=== PATIENT | male | born 1995 ===

== ENCOUNTER 2018-12-11 10:53 | Emergency (ER) | payer MEDICAID ==
[2018-12-11 11:03] VITALS: RESP 18
[2018-12-11 11:04] VITALS: BMI 58.3
--- NOTE | 2018-12-11 11:28 | ED PDOC ---
HPI: General Adult Time Seen by Provider: 12/11/18 11:06 Chief Complaint (Nursing): Weakness/Neurological Deficit Chief Complaint (Provider): Weakness/Neurological Deficit History Per: Patient History/Exam Limitations: no limitations Onset/Duration Of Symptoms: Days (2) Additional Complaint(s): 23 y/o male presents to the ED complaining of right facial numbness since 2 days ago. Patient denies vision changes, nausea, vomiting, numbness, or any weakness to the extremities. PMD: none provided NIHSS Stroke Scale - Date/Time Evaluation Performed Time Performed: 11:10 When Was NIHSS Performed: Baseline - How Severe is the Stroke Level of Consciousness: 0=Alert LOC to Questions: 0=Both comments correct LOC to commands: 0=Obeys both correctly Best Gaze: 0=Normal Visual: 0=No visual loss Facial: 3=Complete unilateral paralysis Motor Arm - Left: 0=No drift Motor Arm - Right: 0=No drift Motor Leg - Left: 0=No drift Motor Leg - Right: 0=No drift Limb Ataxia: 0=Absent Sensory: 0=Normal Best Language: 0=No aphasia Dysarthia: 0=Normal articulation Extinction & Inattention (Neglect): 0=Normal, no object Score: 3 Past Medical History Reviewed: Historical Data, Nursing Documentation, Vital Signs Vital Signs: Last Vital Signs Temp 98.3 F 12/11/18 11:02 Pulse 117 H 12/11/18 11:02 Resp 18 12/11/18 11:02 BP 164/93 H 12/11/18 11:02 Pulse Ox 98 12/11/18 11:02 - Medical History PMH: No Chronic Diseases - Surgical History Surgical History: No Surg Hx - Family History Family History: States: Unknown Family Hx - Social History Current smoker - smoking cessation education provided: No Alcohol: None - Home Medications Home Medications: Ambulatory Orders Medication Instructions Recorded Acyclovir 400 mg PO 5XD #49 tablet 12/11/18 predniSONE [predniSONE Tab] 25 mg PO BID #95 tab 12/11/18 - Allergies Allergies/Adverse Reactions: Allergies Allergy/AdvReac Type Severity Reaction Status Date / Time No Known Allergies Allergy Verified 12/11/18 11:22 Review of Systems ROS Statement: Except As Marked, All Systems Reviewed And Found Negative Eyes: Negative for: Vision Change Gastrointestinal: Negative for: Nausea, Vomiting Musculoskeletal: Negative for: Neck Pain, Arm Pain, Back Pain, Leg Pain, Foot Pain Neurological: Positive for: Numbness (Right facial ). Negative for: Headache Physical Exam - Reviewed Nursing Documentation Reviewed: Yes Vital Signs Reviewed: Yes - Physical Exam Appears: Positive for: Well, Non-toxic, No Acute Distress Head Exam: Positive for: ATRAUMATIC, NORMAL INSPECTION, NORMOCEPHALIC Skin: Positive for: Normal Color, Warm, Dry Eye Exam: Positive for: EOMI, Normal appearance, PERRL ENT: Positive for: Normal ENT Inspection Neck: Positive for: Normal, Painless ROM, Supple Cardiovascular/Chest: Positive for: Regular Rate, Rhythm. Negative for: Murmur Respiratory: Positive for: Normal Breath Sounds. Negative for: Wheezing Gastrointestinal/Abdominal: Positive for: Normal Exam, Soft. Negative for: Tenderness Back: Positive for: Normal Inspection. Negative for: L CVA Tenderness, R CVA Tenderness Extremity: Positive for: Normal ROM Neurological/Psych: Positive for: Awake, Alert, Normal Tone, Oriented (x3), Facial Droop (Right facial droop. Forehead is effected; tongue midline. No lesions.). Negative for: Motor/Sensory Deficits - ECG O2 Sat by Pulse Oximetry: 98 Medical Decision Making Medical Decision Making: Time:1131 Impression: 23 y/o male presents with Mason's palsy. Plan: -HSV 1/2 -Zovirax 400mg PO -Prednisone 25mg PO Scribe Attestation: Documented by Mabel Michael, acting as a scribe for Yanet Coronel. Provider Scribe Attestation: All medical record entries made by the Scribe were at my direction and personally dictated by me. I have reviewed the chart and agree that the record accurately reflects my personal performance of the history, physical exam, medical decision making, and the department course for this patient. I have also personally directed, reviewed, and agree with the discharge instructions and disposition. Disposition - Clinical Impression Clinical Impression: Mason's palsy - Disposition Referrals: [facility] [Outside] Disposition: Routine/Home Disposition Time: 13:05 Condition: STABLE Prescriptions: Acyclovir 400 mg PO 5XD #49 tablet predniSONE [predniSONE Tab] 25 mg PO BID #95 tab Instructions: Mason's Palsy Forms: [employer] (Yi)
[2018-12-11 13:50] VITALS: BP 140/88; PULSE 90; TEMP 98.2
[2018-12-11 16:52] VITALS: O2SAT 98
== END 2018-12-11 13:30 | disposition home or self-care (01) ==
LOC: H.ER 10:53
DX: G51.0 Bell's palsy (principal)